=== PATIENT | female | born 1985 | race Caucasian/White ===

== ENCOUNTER → 2019-01-22 14:13 | Outpatient (REF) | payer OTHER, MEDICAID, SELFPAY ==
[2019-01-22 14:31] LABS: Influenza A and B by PCR Rapid Negative (Negative)
== END ==
LOC: LAB 14:13
PROVIDERS: Family Provider Obstetrics & Gynecology; PCP Obstetrics & Gynecology; Visit Provider Registered Nurse
DX: R50.9 Fever, unspecified (principal); R68.89 Other general symptoms and signs
CPT/HCPCS: 87400

== ENCOUNTER 2019-01-22 21:37 | Emergency (ER) | payer OTHER, MEDICAID, SELFPAY ==
[2019-01-22 22:46] VITALS: BP 140/90; PULSE 18; TEMP 36.8; O2SAT 97; BMI 25.4
[2019-01-22 23:01] VITALS: BP 118/76; PULSE 70; RESP 18; O2SAT 100
--- NOTE | 2019-01-22 23:05 | ED_ITS ---
HPI - Eye Problem General Chief complaint: Eye Problems Stated complaint: UNABLE TO OPEN LEFT EYE Time Seen by Provider: 01/22/19 23:04 Source: patient Mode of arrival: ambulatory Limitations: no limitations History of Present Illness HPI Narrative: Patient is a 33-year-old female here for evaluation of left eye irritation. She states that it has been progressively worsening throughout the day. She does wear contacts. She states she slept in her contacts last evening. When she took them out this morning started having pain in her left eye. No foreign body sensation. Does have some drainage. Does wear glasses. Has never had eye surgery in the past. Related Data Previous Rx's Medication Instructions Recorded erythromycin 0.5 inch EYE-LEFT TID 5 Days #3.5 01/23/19 gram Allergies Allergy/AdvReac Type Severity Reaction Status Date / Time SULFA (SULFONAMIDE) Allergy Mild ABDOMINAL Uncoded 02/06/18 13:02 PAIN Review of Systems Constitutional Denies fever(s) and Reports headache(s) Eyes Denies change in vision, Denies diplopia and Denies loss of vision Comments: Irritation to the left eye photophobia to left eye ENT Ears, Nose, Mouth, and Throat: Reports headache(s), Denies nasal congestion, Denies disequilibrium, Denies sore throat and Denies throat swelling Cardiovascular Denies dyspnea Respiratory Denies cough and Denies dyspnea Neurologic Reports headache(s), Denies loss of vision and Denies disequilibrium Allergic/Immunologic Denies throat swelling [facility] Medical History Healthy adult (Acute) Family History (Updated 07/15/14 @ 00:00 by Cary Chilel LPN) Grandfather Lung cancer Grandmother Sleep apnea Mother Age: 59 Colon polyps Asthma Seasonal allergies Social History Smoking Status: Never smoker Family History (Updated 07/15/14 @ 00:00 by Cary Chilel LPN) Grandfather Lung cancer Grandmother Sleep apnea Mother Age: 59 Colon polyps Asthma Seasonal allergies Social History Smoking Status: Never smoker Exam Initial Vital Signs Initial Vital Signs: Vital Signs Temperature 98.2 F 01/22/19 22:46 Pulse Rate 18 L 01/22/19 22:46 Blood Pressure 140/90 01/22/19 22:46 Pulse Oximetry 97 01/22/19 22:46 Const General: cooperative, well developed, well groomed and No acute distress Orientation: alert, awake and oriented x3 HENMT Head: normal to inspection and normocephalic Ears: TM normal on the left Nose: external nose normal Face and sinus: normal facial exam Mouth: oral mucosae normal Eyes Pupils: PERRL EOM: EOM intact bilaterally Other: Right eye unremarkable. Left eye had a vast improvement of the symptoms after tetracaine drops. No fluorescein uptake seen with the left eye. No foreign body seen. Patient does have some injection. Interocular pressure 15 left eye interocular pressure 13 right eye Resp Effort & Inspection: normal respiratory effort Cardio Rate: regular rate Skin Lesions: no lesions Rashes: no rashes Neuro General: alert, awake and oriented x3 Extrem General: capillary refill normal Course Orders Ordered: Discontinued Medications Hydrocodone Bitart/Acetaminophen (Vicodin Prepack) 1 bottle MISC SEEINSTR ONE Stop: 01/23/19 00:39 Last Admin: 01/23/19 00:44 Dose: 1 bottle Erythromycin (Erythromycin Ophth Oint) 1 applic EYE-LEFT NOW ONE Stop: 01/22/19 23:18 Last Admin: 01/22/19 23:32 Dose: 1 applic Vital Signs - 8 hr 01/22/19 22:46 01/22/19 23:01 Temperature 98.2 F Pulse Rate 18 L 70 Respiratory Rate 18 Blood Pressure 140/90 Blood Pressure [Left Arm] 118/76 Pulse Oximetry 97 100 MDM - Eye Problem MDM Narrative Medical decision making narrative: Patient had a vast improvement of her sy mptoms with placement of tetracaine in the left eye. I do suspect that she has irritation of the left eye most likely from sleeping with her contacts. I did not see any direct uptake of the fluorescein stain. No foreign bodies were seen. She has no signs of cellulitis. I had low suspicion for glaucoma. No trauma. Low suspicion for iritis. Patient at baseline with her visual acuity. Will send home with prescription for erythromycin ointment and phone number for her to call Ophthalmology tomorrow. She was given return precautions. She expressed understanding and agreement with plan. Discharge Plan Departure Patient Disposition: Home Clinical Impression: Acute eye pain Discharge Date/Time: 01/23/19 00:45 Interventions: ED Discharge Assessment Last Done: 01/23/19 00:45 Instructions: DI for Eye Pain Activity Restrictions/Additional Instructions: Take the medications as directed. Tomorrow contact the ophthalmology office here at [facility] at [phone]. Return to the emergency department for any new or worsening symptoms Prescriptions: New erythromycin 5 mg/gram (0.5 %) ointment 0.5 inch EYE-LEFT TID 5 Days Qty: 3.5 RF: 0
[2019-01-22] MEDS: ERYTHROMYCIN OPHTH 1 GM OINT 1 APPLIC EYE-LEFT (23:32)
[2019-01-23] MEDS: HYDROCODONE/ACET 5/325 PREPACK 1 BOTTLE MISC (00:44)
== END 2019-01-23 00:45 | disposition home or self-care (01) ==
PROVIDERS: Emergency Provider Emergency Medicine
DX: H57.12 Ocular pain, left eye (principal)
CPT/HCPCS: 87400; 99283

== ENCOUNTER 2025-03-01 07:26 | Emergency (ER) | payer OTHER, SELFPAY ==
[2025-03-01] VITALS (7 sets, daily range): BP systolic 124–126; BP diastolic 79–84; PULSE 78–90; RESP 14–18; TEMP 36.8–37; O2SAT 97–100; BMI 22.6
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
[2025-03-01] MEDS: KETOROLAC 30 MG/ML VIAL 15 MG IV (07:39)
== END 2025-03-01 08:58 | disposition home or self-care (01) ==
PROVIDERS: Emergency Provider Emergency Medicine
DX: S16.1XXA Strain of muscle, fascia and tendon at neck level, initial encounter (principal); V53.5XXA Driver of pick-up truck or van injured in collision with car, pick-up truck or van in traffic accident, initial encounter
CPT/HCPCS: 70450; 71046; 72125; 96374; 99284; J1885